=== PATIENT | female | born 1990 | race Caucasian/White ===

== ENCOUNTER 2019-02-19 16:26 | Emergency (ER) | payer MEDICAID ==
[~2019-02-19] VITALS: Ht 160 cm; Wt 115.7 kg
[2019-02-19 16:57] VITALS: Ht 160 cm; Wt 115.7 kg
[2019-02-19 19:28] LABS: BASOPHIL % 0.7 % (0-2); PLATELET COUNT 349 x10^3mcL (130-400); RED CELL DISTRIBUTION WIDTH 13.4 % (11.5-14.5)
[2019-02-19 22:16] VITALS: BP 111/53
== END 2019-02-19 22:16 | disposition home or self-care (01) ==
LOC: ED 16:26
PROVIDERS: Emergency Medicine
DX: K57.32 Diverticulitis of large intestine without perforation or abscess without bleeding (principal)
CPT/HCPCS: J2543